=== PATIENT | male | born 1975 | race Caucasian/White ===

== ENCOUNTER 2021-01-10 09:00 | Outpatient (CLI) | payer OTHER | END 2021-01-10 09:15 | disposition home or self-care (01) | LOC: PPH VACUNA 09:00 | PROVIDERS: ATTEND Emergency Medicine Pediatric Emergency Medicine | DX: Z23 Encounter for immunization (principal) ==

== ENCOUNTER 2024-08-08 11:03 | Outpatient (CLI) | payer OTHER | END 2024-08-08 11:22 | disposition home or self-care (01) | LOC: MRI 11:03 | PROVIDERS: ATTEND Orthopaedic Surgery | DX: M25.512 Pain in left shoulder (principal); M25.522 Pain in left elbow | CPT/HCPCS: 73221 ==

== ENCOUNTER 2024-09-30 06:00 | Day surgery (SDC) | payer OTHER ==
[2024-09-30] MEDS ORDERED: ISOPROPYL ALCOHOL 30 ML OUNCE TOP ONE (09:30)
[2024-09-30] MEDS ORDERED: VANCOMYCIN HCL 1,000 MG VIAL IV SCH (09:30)
[2024-09-30] MEDS ORDERED: MORPHINE SULFATE 4 MG/ML VIAL IV ONE ×2 (11:30→12:00)
[2024-09-30] MEDS ORDERED: SUGAMMADEX SODIUM 200 MG/2 ML VIAL IV ONE (15:00)
== END 2024-09-30 13:50 | disposition home or self-care (01) ==
LOC: CIR.AMB 06:00
PROVIDERS: ATTEND Orthopaedic Surgery
DX: M66.322 Spontaneous rupture of flexor tendons, left upper arm (principal)